=== PATIENT | male | born 1985 ===

== ENCOUNTER 2020-11-16 03:57 | Emergency (ER) | payer SELFPAY ==
[~2020-11-16] VITALS: Ht 177.8 cm; Wt 105.0 kg
[2020-11-16 04:00] VITALS: BP 145/98
[2020-11-16] MEDS ORDERED: SODIUM CHLORIDE 0.9% 1,000ML IVBOLUS ONE ×2 (04:00→05:30)
[2020-11-16] MEDS ORDERED: THIAMINE 100MG TABLET PO ONE (04:00)
[2020-11-16] MEDS ORDERED: PLEASE ENTER ALLERGIES MC SCH (04:30)
--- NOTE | 2020-11-16 04:30 | NUR ---
BIBA AFTER BEING FOUND SLEEPING AT [facility] BY SECURITY. +ETOH. PT HERE FROM [place] WITH AND KIDS WHO ARE AT [facility]. PT VERY INTOXICATED, STRONG ETOH ODOR ON BREATH. PT REFUSING TO LAY IN GURNEY PROPERLY, LAYING LONG-TERM OFF WITH FEET DANGLING OVER EDGE STATING "IM COMFORTABLE THIS WAY". PT ALSO MAKING SEXUAL COMMENTS TO RN SUCH "I WONT BE MAD IF YOU TOUCH MY NIPPLES, JUST DONT TELL MY ". PT ALSO WITH OUTSTRETCHED ARMS ATTEMPTING TO GRAB AT FEMALE TECH DOING EKG AND FEMALE RN WHEN CLOSE GETTING VITALS. PT MAKING INNAPROPRIATE COMMENTS TO MATTRESS INSPECTOR, "I LOVE WOMEN, DO YOU HAVE A SISTER? JUST DONT TELL MY ". LAB BLOOD SUGAR OF 486, PT DENIES DM ANY ANY OTHER MEDICAL HISTORY.
[2020-11-16 04:46] LABS: ANION GAP 16 mmol/L (5-15); CALCIUM 8.4 mg/dL (8.5-10.1); CHLORIDE 102 mmol/L (98-107)
[2020-11-16 04:48] LABS: ALKALINE PHOSPHATASE 92 U/L (45-117); BASOPHILS % (AUTO) 1 % (0-1); BILIRUBIN,TOTAL 0.7 mg/dL (0.2-1.0); CREATININE 1.18 mg/dL (0.7-1.3); EOSINOPHILS % (AUTO) 1 % (1-7); LYMPHOCYTES % (AUTO) 35 % (22-44); MEAN CORPUSCULAR HEMOGLOBIN 31.9 pg (27.5-34.5); MEAN CORPUSCULAR HGB CONC 35.5 g/dL (33.2-36.2); MEAN PLATELET VOLUME 8.9 fL (7.4-10.4); MONOCYTES % (AUTO) 5 % (2-9); NEUTROPHILS % (AUTO) 59 % (42-75); PLATELET COUNT 191 x10^3/uL (130-400); RED BLOOD COUNT 4.87 x10^6/uL (4.38-5.82); RED CELL DISTRIBUTION WIDTH 12.6 % (9.4-14.8); TOTAL PROTEIN 8.2 g/dL (6.4-8.2)
[2020-11-16 04:50] LABS: ALANINE AMINOTRANSFERASE 43 U/L (12-78)
[2020-11-16 04:53] LABS: MD NO
--- NOTE | 2020-11-16 05:01 | NUR ---
PT SITTING UP AT FOOT OF BED, NOW SAYING "YOU'RE THE SEXY DOCTOR" TO THIS RN. PT REQUESTING URINAL AND STATING "YOU NEED TO HOLD IT FOR ME, ITS NOT GOING TO FIT IN THERE BY ITSELF", PT ASKED MULTIPLE TIMES TO END INNAPROPIATE BEHAVIOR, PTS REPSONSE IS "WHY? I'LL NEVER SEE YOU AGAIN, JUST DONT TELL MY ".
--- NOTE | 2020-11-16 05:03 | NUR ---
UA COLLECTED AND SENT TO LAB
[2020-11-16] MEDS ORDERED: INSULIN SINGLE DOSE, ER ONE (05:07)
[2020-11-16] MEDS ORDERED: INSULIN REGULAR 100 UNITS/ML, 3ML VIAL IVPush ONE (05:30)
--- NOTE | 2020-11-16 05:34 | NUR ---
PT FOUND AT [facility], UPSET AND YELLING. SECURITY CALLED AND ESCORTED BACK TO ROOM. CALLED AND SPOKE TO DR GUY ABOUT FOLLOW UP CARE, VERBALIZES UNDERSTANDING. PT BECOMING VERBALLY AGGRESIVE AND NOT FOLLOWING COMMANDS. PT REFUSING ANY FURTHER TREATMENT AT THIS TIME, CURSING AT RN, MD AND SECURITY. AGREEABLE TO COME BMET PT AT ER.
[2020-11-16 05:36] LABS: AMPHETAMINE SCREEN, URINE Negative (Negative); BARBITURATE SCREEN, URINE Negative (Negative); BENZODIAZEPINE SCREEN, URINE Negative (Negative); CANNABINOID SCREEN, URINE Negative (Negative); COCAINE SCREEN, URINE Negative (Negative); METHADONE SCREEN, URINE Negative (Negative); OPIATE SCREEN, URINE Negative (Negative)
--- NOTE | 2020-11-16 05:40 | NUR ---
PT STILL VERBALLY AGRESSIVE AND CURSING AT STAFF, ESCORTED OUT BY SECURITY.
== END 2020-11-16 05:46 ==
LOC: ED 04:00
DX: G31.2 Degeneration of nervous system due to alcohol (principal); F10.220 Alcohol dependence with intoxication, uncomplicated; R41.82 Altered mental status, unspecified; R73.09 Other abnormal glucose; R00.0 Tachycardia, unspecified; Y90.0 Blood alcohol level of less than 20 mg/100 ml
CPT/HCPCS: 36415; 80053; 80307; 80320; 85025; 93005; 96361; 96374; 99284; J1815; J7030; G0480